=== PATIENT | male | born 1955 | race Caucasian/White ===

== ENCOUNTER 2022-02-04 11:52 | Outpatient (CLI) | payer MEDICARE | END 2022-02-04 11:53 | disposition home or self-care (01) | LOC: MADLAB 11:52 | PROVIDERS: ATTEND Registered Nurse | DX: M79.604 Pain in right leg (principal); R20.2 Paresthesia of skin; M47.816 Spondylosis without myelopathy or radiculopathy, lumbar region | CPT/HCPCS: 72110 ==

== ENCOUNTER 2022-02-09 13:34 | Outpatient (CLI) | payer MEDICARE | END 2022-02-09 13:35 | disposition home or self-care (01) | LOC: MADRAD 13:34 | PROVIDERS: ATTEND Registered Nurse | DX: M25.852 Other specified joint disorders, left hip (principal) ==